=== PATIENT | male | born 1975 ===

== ENCOUNTER 2018-07-25 20:34 | Emergency (ER) | payer OTHER ==
[~2018-07-25] VITALS: Ht 172.7 cm; Wt 99.8 kg
[~2018-07-25 20:34] MED LIST: DOCU100 PO; ESOM20; HYDACE5 PO; HYDCOR2.5C PR; LIDO2TG30 TOP; OXYACE5T PO; TRIHYD253A
[2018-07-25] MEDS ORDERED: SERT100 PO (22:56)
[2018-07-25] MEDS ORDERED: EUTHYROX75 MCG PO (22:56)
[2018-07-25] MEDS ORDERED: CHLO25 PO (23:13)
[2018-07-25] MEDS ORDERED: DIM (23:51)
[2018-07-25] MEDS ORDERED: Testopel75 MG (23:51)
== END 2018-07-26 00:45 | disposition home or self-care (01) ==
LOC: ER 20:34
DX: F10.239 Alcohol dependence with withdrawal, unspecified (principal); Z79.899 Other long term (current) drug therapy; F17.200 Nicotine dependence, unspecified, uncomplicated
CPT/HCPCS: 96361; 96374; 99284-25; J2060; J7030

== ENCOUNTER 2022-07-26 11:25 | Day surgery (SDC) | payer OTHER ==
[2022-07-26] VITALS (22 sets, daily range): BP systolic 105–179; BP diastolic 66–166
[~2022-07-26] VITALS: Ht 175.3 cm; Wt 98.1 kg
[~2022-07-26 11:25] MED LIST changes: +CHLO25 PO; +DIM; +EUTHYROX75 MCG PO; +SERT100 PO; +Testopel75 MG
--- NOTE | 2022-07-26 12:31 | NUR ---
[facility] in [facility] warming gown applied. Patient states colon prep results clear. History, Chart, Medications and Allergies reviewed before start of procedure.Lungs clear T/O to Auscultation. Patient confirms NPO status and agrees with scheduled surgery. Patient States Post-Procedure ride home has been arranged. Pre-Op teaching done. Pt verbalizes understanding.
--- NOTE | 2022-07-26 13:35 | NUR ---
07/26/22 Giselle Valadez HISTORY, CHART, MEDICATIONS AND ALLERGIES REVIEWED BEFORE START OF PROCEDURE. PATIENT CONFIRMS NPO STATUS AND AGREES WITH SCHEDULED PROCEDURE. 3-LEAD EKG REVIEWED WITH PHYSICIAN PRIOR TO START OF PROCEDURE. MONITOR INTACT WITH CONTINUOUS PULSE OXIMETRY,CAPNOGRAPHY, 3-LEAD EKG, INTERMITTENT BP. SUPPLEMENTAL O2 TO BE TITRATED THROUGHOUT PROCEDURE TO MAINTAIN O2 SATURATION ABOVE 90%. PATIENT DETERMINED TO BE ASA APPROPRIATE FOR PROPOFOL SEDATION PRIOR TO START OF PROCEDURE BY DR. CALERO.
--- NOTE | 2022-07-26 14:20 | NUR ---
Patient up to Ambulate independently. Gait steady. Discharge instructions reviewed with patient. Patient verbalizes understanding. Copy given to patient to take home. Patient States Post-Procedure ride home has been arranged. Discharged via wheelchair to private car for ride home.
== END 2022-07-26 23:06 | disposition home or self-care (01) ==
LOC: ORSCMMR 11:25 → ORD 12:45 → ORSCMMR 23:06
PROVIDERS: Internal Medicine Gastroenterology
PROC: 0DBP8ZX Excision of Rectum, Via Natural or Artificial Opening Endoscopic, Diagnostic (ICD-10-PCS; principal; 2022-07-26 12:45)
DX: Z12.11 Encounter for screening for malignant neoplasm of colon (principal); Z86.010 Personal history of colon polyps; K62.1 Rectal polyp; D12.8 Benign neoplasm of rectum; K57.30 Diverticulosis of large intestine without perforation or abscess without bleeding; K64.8 Other hemorrhoids; K21.9 Gastro-esophageal reflux disease without esophagitis; Z79.899 Other long term (current) drug therapy
CPT/HCPCS: 88305; J2250; J2704; J7120